=== PATIENT | female | born 1975 | race Hispanic/Latino ===

== ENCOUNTER 2020-08-08 11:45 | Emergency (ER) | payer SELFPAY ==
[2020-08-08] MEDS ORDERED: predniSONE 20 MG TAB ONE (12:27)
== END 2020-08-08 12:55 | disposition home or self-care (01) ==
LOC: BURERS 11:45
DX: L25.3 Unspecified contact dermatitis due to other chemical products (principal); I10 Essential (primary) hypertension
CPT/HCPCS: 99283; J7512